=== PATIENT | male | born 1975 | race Caucasian/White ===

== ENCOUNTER 2020-03-12 20:46 | Emergency (ER) | payer SELFPAY ==
[~2020-03-12] VITALS: Ht 185.4 cm; Wt 90.7 kg
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
--- NOTE | 2020-03-12 21:03 | NUR ---
ALLYID SWABBED, SENT TO LAB.
--- NOTE | 2020-03-12 21:06 | NUR ---
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
--- NOTE | 2020-03-12 21:07 | NUR ---
PT PROVIDED WITH URINAL, AWAITING URINE SAMPLE.
[2020-03-12 21:08] LABS: BASOPHILS % (AUTO) 0.7 % (0.0-2.0); EOSINOPHILS % (AUTO) 0.1 % (0.0-6.0); HEMATOCRIT 50 % (39-51); HEMOGLOBIN 17.2 g/dL (13.5-17.5); LYMPHOCYTES # (AUTO) 1.8 /CMM (0.8-4.8); LYMPHOCYTES % (AUTO) 24.8 % (20.0-44.0); MEAN CORPUSCULAR HGB CONC 35 g/dl (31.0-36.0); MEAN CORPUSCULAR VOLUME 97 fL (80-96); MONOCYTES # (AUTO) 0.4 /CMM (0.1-1.30); MONOCYTES % (AUTO) 5.9 % (2.0-12.0); NEUTROPHILS # (AUTO) 4.9 /CMM (1.8-8.9); NEUTROPHILS % (AUTO) 68.5 % (43.0-81.0); PLATELET COUNT (AUTO) 128 /CMM (150-450); RED BLOOD CELL COUNT(AUTO) 5.15 MIL/uL (4.5-6.0); WHITE BLOOD COUNT (AUTO) 7.1 K/uL (4.3-11.0)
[2020-03-12 21:22] LABS: CALCIUM, SERUM 8.8 mg/dL (8.5-10.1); POTASSIUM 3.4 mmol/L (3.5-5.1)
[2020-03-12 21:34] LABS: ALBUMIN 3.7 g/dL (3.4-5.0); BILIRUBIN,DIRECT 0.3 mg/dL (0.0-0.2); BILIRUBIN,TOTAL 0.6 mg/dL (0.2-1.0); TOTAL PROTEIN, SERUM 7.6 g/dL (6.4-8.2)
--- NOTE | 2020-03-12 21:40 | NUR ---
URINE COLLECTED, SENT TO LAB.
[2020-03-12 21:45] LABS: BILIRUBIN,URINE SMALL (NEGATIVE); COLOR,URINE AMBER (YELLOW); LEUKOCYTE ESTERASE ,URINE Negative (NEGATIVE); NITRITE, URINE Negative (NEGATIVE); PROTEIN,URINE 100 mg/dl (NEGATIVE); UGLUCOSE Negative (NEGATIVE); UROBILINOGEN,URINE 0.2 EU/dL (0.2)
--- NOTE | 2020-03-12 21:47 | NUR ---
LAB CALLED REGARDING NEGATIVE COVID RESULT.
[2020-03-12 21:56] LABS: BACTERIA,URINE Few /HPF (None Seen); MUCUS,URINE Few /LPF (None Seen); SQUAMOUS EPITHELIAL CELL,UR Few /HPF (None Seen); WBC,URINE 0-2 /HPF (0-3)
--- NOTE | 2020-03-13 01:02 | NUR ---
PT ASLEEP, VSS.
--- NOTE | 2020-03-13 03:15 | NUR ---
PT PROVIDED WITH WATER. VSS.
--- NOTE | 2020-03-13 05:31 | NUR ---
PT AMBULATED TO THE RESTROOM, VSS.
--- NOTE | 2020-03-13 07:09 | NUR ---
PT UPDATED WITH PLAN OF CARE. AWAKE IN BED, VSS.
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
--- NOTE | 2020-03-13 09:22 | NUR ---
CALLED [facility] FOR CRISIS EVAL. WILL BE HERE WITHIN AN HOUR.
--- NOTE | 2020-03-13 09:39 | NUR ---
KOBE JENKINS [phone] WOULD LIKE TO SPEAK TO CRISIS DIRECTOR LEARNING SERVICES.
--- NOTE | 2020-03-13 11:42 | NUR ---
PATIENT PROVIDED W SANDWICH AND JUICE. TOLERATED WELL
--- NOTE | 2020-03-13 12:48 | NUR ---
Patient discharged to home with mother Dannielle Patel [phone] stable condition. Written and verbal after care instructions given. Patient verbalizes understanding of instruction. All belongings (keys, cellphone and slippers) given to the patient.
[2020-03-13 12:50] VITALS: BP 127/69
== END 2020-03-13 12:50 | disposition home or self-care (01) ==
LOC: ER 20:49
DX: F10.129 Alcohol abuse with intoxication, unspecified (principal); Y90.8 Blood alcohol level of 240 mg/100 ml or more; R45.851 Suicidal ideations; Z20.828 Contact with and (suspected) exposure to other viral communicable diseases
CPT/HCPCS: 36415 ×3; 70450; 80048; 80076; 80299; 80307; 80320 ×3; 81001; 85025; 87426; 99285; C9803; G0480